=== PATIENT | male | born 1985 | race Caucasian/White ===

== ENCOUNTER 2016-09-19 10:42 | Emergency (ER) | payer BC ==
[2016-09-19 10:55] VITALS: RESP 16; O2SAT 96
--- NOTE | 2016-09-19 11:59 | UCPHY ---
H & P Time Seen by Provider: 09/19/16 11:43 Patient Type: New HPI/ROS: Chief complaint. Right arm pain HPI. 31-year-old male with 2 month history of initially tingling to the tips of fingers thumb through 3rd digit beginning after child jumped on to his neck. The last 4 days he has had now pain running from the right side of his neck down to fingers 1 through 3. No weakness. It is better after he shakes his arm out. He has been having chiropractic he which does not seem to be helping. Again no weakness to his arm ROS Constitutional. no fever/chills, no weakness Eyes. no problems with vision ENT. no sore throat, no nasal drainage Cardiovascular. no chest pain Respiratory. no shortness of breath, no cough Abdominal. no abdominal pain, no nausea/vomiting, no diarrhea . no problems urinating MS. Pain from right side neck through shoulder down to his fingers Skin. no rash Lymph. no swollen glands Neuro. no headache, no dizziness, no difficulty walking or with speech Past Medical/Surgical History: Healthy Social History: Single, daily smoker, no alcohol Smoking Status: Current every day smoker Physical Exam: General Appearance: Alert well-developed male mild distress vital signs are stable Eyes: Pupils equal and round no pallor or injection. ENT, Mouth: Mucous membranes are moist. Respiratory: There are no retractions, lungs are clear to auscultation. Cardiovascular: Regular rate and rhythm. Gastrointestinal: Abdomen is soft and nontender, no masses, bowel sounds normal. Neurological: Awake and alert, sensory and motor exams grossly normal. No pronator drift. Tingling to fingers 1 through 3 Skin: Warm and dry, no rashes. Musculoskeletal: Neck is supple nontender. Extremities symmetrical, full range of motion. Psychiatric: Patient is oriented X 3, there is no agitation. Constitutional: Initial Vital Signs Temperature (C) 36.7 C 09/19/16 10:52 Heart Rate 76 09/19/16 10:52 Respiratory Rate 16 09/19/16 10:52 Blood Pressure 128/86 H 09/19/16 10:52 O2 Sat (%) 96 09/19/16 10:52 O2 Delivery Mode Room Air Allergies/Adverse Reactions: No Known Allergies Allergy (Verified 09/19/16 10:55) Home Medications: Medication Instructions Recorded oxyCODONE/APAP 5/325 [Percocet 1 tab PO Q4-6PRN PRN #14 tab 09/19/16 5/325] predniSONE 40 mg PO DAILY #10 tablet 09/19/16 Medical Decision Making ED Course/Re-evaluation: We do not have an MRI machine here for imaging Patient and I discussed treatment plan including criteria for return importance of follow-up further evaluation. He expresses understanding and agreement Differential Diagnosis: This appears to be cervical radiculopathy. Possibly after trauma. I have considered HNP as etiology. Departure - Departure Disposition: Home, Routine, Self-Care Clinical Impression: Cervical radiculopathy Condition: Good Instructions: Cervical Radiculopathy (ED) Additional Instructions: Prednisone each day for the next 5 days. Percocet in addition for pain. Return for arm weakness. Follow up with spine doctor for further evaluation and treatment. Likely you need an MRI to see if you have a herniated disc or not. Work on stopping smoking Referrals: NONE *PRIMARY CARE P,. [Primary Care Provider] - As per Instructions Toño Davalos MD [Medical Doctor] - 2-3 days, call for appt. Prescriptions: oxyCODONE/APAP 5/325 [Percocet 5/325] 1 tab PO Q4-6PRN PRN #14 tab PRN Reason: Pain, Moderate predniSONE 40 mg PO DAILY #10 tablet - PQRS PQRS Measurement: 134: Depression screening and followup, PRIME MD-PHQ2 (12 years and older) Over the last 2 weeks, how often have you been bothered by any of the following problems? 1. Feeling down, depressed, or hopeless? 2. Little interest or pleasure in doing things? Patient answered no to both 1 and 2 130: Documentation of medications. Reviewed all patient medications, doses, route and frequency. 226: Do you smoke? Yes, counseled to stop.
[2016-09-19 12:35] VITALS: BP 121/76; PULSE 74; TEMP 97.9
== END 2016-09-19 12:11 | disposition home or self-care (01) ==
LOC: CED 10:42
DX: M54.12 Radiculopathy, cervical region (principal); F17.200 Nicotine dependence, unspecified, uncomplicated
CPT/HCPCS: G0463-PO

== ENCOUNTER 2017-02-26 11:56 | Emergency (ER) | payer BC, MEDICAID ==
--- NOTE | 2017-02-26 12:04 | EDPHY ---
H & P - Personal History Tetanus Vaccine Date: within 10 years - Medical/Surgical History Hx Asthma: No Hx Chronic Respiratory Disease: No Hx Diabetes: No Hx Cardiac Disease: No Hx Renal Disease: No Hx Cirrhosis: No Hx Alcoholism: No Hx HIV/AIDS: No Hx Splenectomy or Spleen Trauma: No Other PMH: L humerus fx - Social History Smoking Status: Current every day smoker Constitutional: Initial Vital Signs Temperature (C) 36.6 C 02/26/17 12:06 Heart Rate 87 02/26/17 12:06 Respiratory Rate 18 02/26/17 12:06 Blood Pressure 135/80 H 02/26/17 12:06 O2 Sat (%) 96 02/26/17 12:06 O2 Delivery Mode Room Air Allergies/Adverse Reactions: No Known Allergies Allergy (Verified 09/19/16 10:55) Home Medications: Medication Instructions Recorded oxyCODONE/APAP 5/325 [Percocet 1 tab PO Q4-6PRN PRN #14 tab 09/19/16 5/325] predniSONE 40 mg PO DAILY #10 tablet 09/19/16 Hydrocodone/APAP 5/325 [[place] 1 - 2 each PO Q4-6PRN PRN #20 tab 02/26/17 5/325] Ibuprofen [Motrin] 800 mg PO Q8 #20 tab 02/26/17 methylPREDNISolone [Medrol Dose 1 each PO AD #1 ea 02/26/17 Bryce] Medical Decision Making ED Course/Re-evaluation: CHIEF COMPLAINT: Right hand numbness and pain HISTORY OF PRESENT ILLNESS: The patient is a 31 y/o male who complains of right hand and arm numbness and pain. He notes his thumb, pointer, and middle fingers are numb and weak. He also notes the numbness and pain radiates to his lower neck and goes underneath his shoulder blade. Denies any recent trauma, redness, swelling or other pertinent symptoms. REVIEW OF SYSTEMS: A 10 point review of systems was performed and is negative with the exception of the elements mentioned in the history of present illness. PHYSICAL EXAM: HR, BP, O2 Sat, RR. Temp noted General Appearance: Alert, well hydrated, appropriate, and non-toxic appearing. Head: Atraumatic without scalp tenderness or obvious injury Eyes: Pupils equal, round, reactive to light and accommodation, EOMI, no trauma , no injection. Ears: Clear bilaterally, no perforation, normal landmarks Nose: Atraumatic, no rhinorrhea, clear. Throat: Mucus membranes moist. Neck: Supple, non-tender, no lymphadenopathy. Respiratory: No retractions, no distress, no wheezes, and no accessory muscle use. Lungs are clear to auscultation bilaterally. Cardiovascular: Regular rate and rhythm, no murmurs, rubs, or gallops. Good capillary refill all extremities. Gastrointestinal: Abdomen is soft, non-tender, non-distended, no masses, no rebound, no guarding, no peritoneal signs. Musculoskeletal: Normal active ROM of all extremities, atraumatic. Neurological: Alert, appropriate, and interactive. 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 Normal reflexes. Sensory loss of right median nerve distribution. Skin: No rashes, good turgor, no nodules on palpation. PAST MEDICAL HISTORY: Denies PAST SURGICAL HISTORY: Left humerus fracture repair SOCIAL HISTORY: Single, lives in [place], smoker DIFFERENTIAL DIAGNOSIS: The differential diagnosis for the patient's neurologic deficits included but was not limited to a herniated disc, peripheral causes, central causes including CVA, TIA, electrolyte abnormalities and dehydration, cardiogenic causes. 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 I suspect he has a lower cervical herniated disc which is causing his radiculopathy and paresthesias. Plan on steroids and pain management. Reassessed patient and discussed follow up with a neurosurgeon. Return precautions discussed; patient is comfortable with this plan. Departure - Departure Disposition: Home, Routine, Self-Care Clinical Impression: Paresthesias in right hand, Cervical disc herniation, Cervical radiculopathy Condition: Good Instructions: Cervical Disc Herniation (ED), Paresthesia (ED), Cervical Radiculopathy (ED) Additional Instructions: 1.Take Vicodin and Medrol dose pack as prescribed. 2. Follow up with Dr. Tripathi, neurosurgeon, in the next week for your symptoms. 3.Return to the emergency department immediately for severe pain, worsening numbness, weakness, tingling, headache, difficulty walking or other complaints. 4. Followup with your primary physician within one week for unimproved symptoms.. Referrals: Job Tripathi MD [Medical Doctor] - As per Instructions Prescriptions: Hydrocodone/APAP 5/325 [[place] 5/325] 1 - 2 each PO Q4-6PRN PRN #20 tab PRN Reason: Pain, Moderate Ibuprofen [Motrin] 800 mg PO Q8 #20 tab methylPREDNISolone [Medrol Dose Bryce] 1 each PO AD #1 ea Report Scribed for: David Andersen Report Scribed by: Catrina Arellano Date of Report: 02/26/17 Time of Report: 12:04
[2017-02-26 12:09] VITALS: RESP 18; O2SAT 96
[2017-02-26 12:31] VITALS: BP 121/73; PULSE 65; TEMP 98.4
== END 2017-02-26 12:31 | disposition home or self-care (01) ==
LOC: CED 11:56
DX: M54.12 Radiculopathy, cervical region (principal); M50.20 Other cervical disc displacement, unspecified cervical region; F17.200 Nicotine dependence, unspecified, uncomplicated